=== PATIENT | female | born 1960 | race Hispanic/Latino ===

== ENCOUNTER 2022-12-04 03:08 | Inpatient (IN) | payer OTHER ==
[~2022-12-04] VITALS: Ht 149.9 cm; Wt 72.1 kg
[2022-12-04] VITALS (28 sets, daily range): BP systolic 91–119; BP diastolic 33–70
[2022-12-04] MEDS ORDERED: NITROGLYCERIN 50MG/D5W 250ML 1 BOT ONE (03:31)
[2022-12-04] MEDS ORDERED: HEPARIN 5,000 UNIT VIAL ONE (03:31)
[2022-12-04] MEDS ORDERED: ASPIRIN 81MG CHEW TAB ONE (03:31)
[2022-12-04] MEDS ORDERED: HEPARIN 25,000 UNITS/250ML D5W 250 ML IV ONE (03:32)
[2022-12-04] MEDS ORDERED: TICAGRELOR 90 MG TABLET ONE (03:36)
[2022-12-04 03:41] LABS: BASOPHILS % (AUTO) 0.4 % (0.0-5.0); EOSINOPHILS % (AUTO) 1.5 % (0.0-8.0); HEMATOCRIT 43.2 % (36-48); LYMPHOCYTES % (AUTO) 25.3 % (21.0-51.0); MEAN CORPUSCULAR HEMOGLOBIN 31.2 pg (27.0-33.0); MEAN CORPUSCULAR HGB CONC 33.3 g/dL (32.0-36.0); MEAN CORPUSCULAR VOLUME 93.7 fL (79-99); MONOCYTES % (AUTO) 7.5 % (3.0-13.0); NEUTROPHILS % (AUTO) 64.9 % (40.0-77.0); PLATELET COUNT (AUTO) 243 K/uL (130-400); RED BLOOD CELL COUNT(AUTO) 4.61 MIL/uL (4.00-5.50); RED CELL DISTRIBUTION WIDTH 13.2 % (11.0-15.5); WHITE BLOOD COUNT (AUTO) 10.2 K/uL (4.8-10.8)
[2022-12-04 03:50] LABS: CREATININE 0.7 mg/dL (0.5-1.5); POTASSIUM 4.3 mmol/L (3.5-5.1)
[2022-12-04 03:55] LABS: ALBUMIN 3.8 g/dL (3.5-5.0); MAGNESIUM 1.6 mg/dL (1.80-2.40); TOTAL PROTEIN, SERUM 7.6 g/dL (6.0-8.3)
[2022-12-04] MEDS ORDERED: LIDOCAINE HCL 1% 20 ML VIAL ONE (03:59)
[2022-12-04] MEDS ORDERED: MIDAZOLAM HCL 1 MG/ML 2ML VIAL ONE ×4 (03:59→06:08)
[2022-12-04] MEDS ORDERED: HEPARIN 10,000 UNIT/10ML (1,000 UNIT/ML) VIAL ONE (04:00)
[2022-12-04] MEDS ORDERED: BIVALIRUDIN 250 MG/VIAL IV ONE (04:00)
[2022-12-04] MEDS ORDERED: IOHEXOL 350 MG/ML 100ML INFUS..BTL IV ONE ×2 (04:00→05:50)
[2022-12-04] MEDS ORDERED: NITROGLYCERIN 50MG VIAL ONE (04:00)
[2022-12-04] MEDS ORDERED: FENTANYL CITRATE PF 50 MCG/1 ML 2ML VIAL ONE ×2 (04:00→05:49)
[2022-12-04] MEDS ORDERED: VERAPAMIL HCL 2.5 MG/ML VIAL ONE (04:27)
[2022-12-04] MEDS ORDERED: HEPARIN 25,000 UNITS/250ML D5W 250 ML IV SCH (04:30)
[2022-12-04] MEDS ORDERED: NITROGLYCERIN 50MG/D5W 250ML 250 BOT IV SCH (04:30)
[2022-12-04] MEDS ORDERED: TICAGRELOR 90 MG TABLET PO SCH ×2 (04:30→05:00)
[2022-12-04] MEDS ORDERED: HEPARIN 5,000 UNIT VIAL IV SCH (04:30)
[2022-12-04] MEDS ORDERED: ASPIRIN 81MG CHEW TAB PO ONE ×2 (04:30→05:00)
[2022-12-04] MEDS ORDERED: HEPARIN 25,000 UNITS/250ML D5W 250 ML IV PRN (05:00)
[2022-12-04] MEDS ORDERED: NITROGLYCERIN 50MG/D5W 250ML 1 BOT IV PRN (05:00)
[2022-12-04] MEDS ORDERED: ACETAMINOPHEN 325 MG TAB PO PRN ×2 (05:30)
[2022-12-04] MEDS ORDERED: MORPHINE 4 MG SYG IV PRN (05:30)
[2022-12-04] MEDS ORDERED: ONDANSETRON 4MG INJ IV PRN (05:30)
[2022-12-04] MEDS ORDERED: MORPHINE 2 MG SYG IV PRN (05:30)
[2022-12-04] MEDS ORDERED: INSULIN HUMULIN R 100 UNIT/ML 3ML SQ SCH (06:00)
[2022-12-04] MEDS ORDERED: NITROGLYCERIN 0.4 MG SL TAB SL PRN (06:00)
[2022-12-04] MEDS ORDERED: EPTIFIBATIDE 2 MG/ML 10 ML VIAL IVP ONE (06:24)
[2022-12-04] MEDS ORDERED: DiphenhydrAMINE HCL 50 MG/ML VIAL ONE (06:41)
[2022-12-04] MEDS ORDERED: DEXTROSE 50%-WATER 50 ML DISP.SYRIN IV PRN (07:00)
[2022-12-04] MEDS ORDERED: 0.9%NACL 1000ML 1,000 ML IV SCH (07:00)
[2022-12-04] MEDS ORDERED: GLUCAGON 1MG KIT 1 MG ML IM PRN (07:00)
[2022-12-04 08:02] LABS: BASOPHILS % (AUTO) 0.6 % (0.0-5.0); EOSINOPHILS % (AUTO) 1.1 % (0.0-8.0); HEMATOCRIT 42.1 % (36-48); LYMPHOCYTES % (AUTO) 34.9 % (21.0-51.0); MEAN CORPUSCULAR HEMOGLOBIN 31.3 pg (27.0-33.0); MEAN CORPUSCULAR HGB CONC 33.3 g/dL (32.0-36.0); MEAN CORPUSCULAR VOLUME 94.2 fL (79-99); MONOCYTES % (AUTO) 4.4 % (3.0-13.0); NEUTROPHILS % (AUTO) 58.7 % (40.0-77.0); PLATELET COUNT (AUTO) 240 K/uL (130-400); RED BLOOD CELL COUNT(AUTO) 4.47 MIL/uL (4.00-5.50); RED CELL DISTRIBUTION WIDTH 13.2 % (11.0-15.5); WHITE BLOOD COUNT (AUTO) 9.6 K/uL (4.8-10.8)
[2022-12-04 08:08] LABS: HEMOGLOBIN A1C 7.5 % (4.0-6.0)
[2022-12-04 08:13] LABS: ALBUMIN 3.8 g/dL (3.5-5.0); CREATININE 0.6 mg/dL (0.5-1.5); POTASSIUM 3.8 mmol/L (3.5-5.1); TOTAL PROTEIN, SERUM 7.6 g/dL (6.0-8.3)
[2022-12-04] MEDS: ASPIRIN 81MG CHEW TAB PO SCH (09:00)
[2022-12-04] MEDS: TICAGRELOR 90 MG TABLET PO SCH ×2 (09:00→20:15)
[2022-12-04] MEDS: METOPROLOL TARTRATE 25 MG TAB PO SCH ×2 (09:00→20:15)
[2022-12-04] MEDS ORDERED: CLOPIDOGREL 75MG TAB PO SCH (09:00)
[2022-12-04 09:06] LABS: ERYTHROCYTE SEDIMENTATION RATE 35 MM/HR (0-30)
[2022-12-04] MEDS: FAMOTIDINE 20MG VIAL IV SCH ×2 (10:12→20:15)
[2022-12-04] MEDS ORDERED: AEC81 PO (10:59)
[2022-12-04] MEDS ORDERED: ATOR10 PO (10:59)
[2022-12-04] MEDS ORDERED: LISI5TAB21 PO (10:59)
[2022-12-04] MEDS ORDERED: METF-446 PO (10:59)
[2022-12-04] MEDS ORDERED: GABA300C PO (10:59)
[2022-12-04] MEDS ORDERED: EMPA25TA PO (10:59)
[2022-12-04] MEDS: INSULIN HUMULIN R 100 UNIT/ML 3ML SQ SCH ×3 (11:30→20:22)
[2022-12-04] MEDS ORDERED: ATORVASTATIN 40 MG TABLET PO SCH (21:00)
[2022-12-05] VITALS (21 sets, daily range): BP systolic 94–127; BP diastolic 56–79
[2022-12-05 04:46] LABS: BASOPHILS % (AUTO) 0.4 % (0.0-5.0); EOSINOPHILS % (AUTO) 1.2 % (0.0-8.0); HEMATOCRIT 39.5 % (36-48); LYMPHOCYTES % (AUTO) 23.7 % (21.0-51.0); MEAN CORPUSCULAR HEMOGLOBIN 31.7 pg (27.0-33.0); MEAN CORPUSCULAR HGB CONC 33.9 g/dL (32.0-36.0); MEAN CORPUSCULAR VOLUME 93.4 fL (79-99); MONOCYTES % (AUTO) 6.3 % (3.0-13.0); PLATELET COUNT (AUTO) 212 K/uL (130-400); RED BLOOD CELL COUNT(AUTO) 4.23 MIL/uL (4.00-5.50); RED CELL DISTRIBUTION WIDTH 13.3 % (11.0-15.5); WHITE BLOOD COUNT (AUTO) 8.2 K/uL (4.8-10.8)
[2022-12-05 05:34] LABS: ALBUMIN 3.2 g/dL (3.5-5.0); CREATININE 0.7 mg/dL (0.5-1.5); POTASSIUM 3.2 mmol/L (3.5-5.1); TOTAL PROTEIN, SERUM 6.3 g/dL (6.0-8.3)
[2022-12-05] MEDS: INSULIN HUMULIN R 100 UNIT/ML 3ML SQ SCH ×2 (07:26→11:30)
[2022-12-05] MEDS: TICAGRELOR 90 MG TABLET PO SCH (07:45)
[2022-12-05] MEDS: FAMOTIDINE 20MG VIAL IV SCH (07:46)
[2022-12-05] MEDS: ASPIRIN 81MG CHEW TAB PO SCH (07:46)
[2022-12-05] MEDS: METOPROLOL TARTRATE 25 MG TAB PO SCH (07:46)
[2022-12-05] MEDS ORDERED: AEC81 PO (10:33)
[2022-12-05] MEDS ORDERED: ATOR10 PO (10:33)
[2022-12-05] MEDS ORDERED: TICA90TA PO (10:33)
[2022-12-05] MEDS ORDERED: METO-408 PO (10:33)
== END 2022-12-05 12:05 | disposition home or self-care (01) | DRG 247 ==
LOC: EDH 03:08 → EDHIP 03:09 → 2CH 04:31
PROVIDERS: ADMIT Internal Medicine; ATTEND Internal Medicine
PROC: 4A023N7 Measurement of Cardiac Sampling and Pressure, Left Heart, Percutaneous Approach (ICD-10-PCS; principal; 2022-12-04)
PROC: 027035Z Dilation of Coronary Artery, One Artery with Two Drug-eluting Intraluminal Devices, Percutaneous Approach (ICD-10-PCS; 2022-12-04)
PROC: B2111ZZ Fluoroscopy of Multiple Coronary Arteries using Low Osmolar Contrast (ICD-10-PCS; 2022-12-04)
DX: I21.19 ST elevation (STEMI) myocardial infarction involving other coronary artery of inferior wall (principal); I25.10 Atherosclerotic heart disease of native coronary artery without angina pectoris; E11.65 Type 2 diabetes mellitus with hyperglycemia; E66.09 Other obesity due to excess calories; E78.00 Pure hypercholesterolemia, unspecified; F17.200 Nicotine dependence, unspecified, uncomplicated; I10 Essential (primary) hypertension; Z79.899 Other long term (current) drug therapy; Z82.49 Family history of ischemic heart disease and other diseases of the circulatory system; Z83.3 Family history of diabetes mellitus; Z68.32 Body mass index [BMI] 32.0-32.9, adult
CPT/HCPCS: 36415; 71045; 80053; 82550; 82948; 83036; 83735; 84484; 85025; 85651; 93005; 93306; 93458; 99156; 99157; 99291; C1769; C1887; C1894; C9600; C9606; G0378; J0583; J1200; J1327; J1644; J2250; J3010; J3490; Q9967